=== PATIENT | female | born 1995 | race African-American/Black ===

== ENCOUNTER 2016-11-20 12:53 | Emergency (ER) | payer OTHER, SELFPAY ==
[2016-11-20 13:32] LABS: #Basophils 0.1 thou/uL (0.0-0.2); #Eosinphils 0.2 thou/uL (0.0-0.7); #Lymphocytes 2.6 thou/uL (1.20-3.40); #Monocytes 0.8 thou/uL (0.11-0.59); #Neutrophils 7.2 thou/uL (1.40-6.50); %Eosinophils 1.9 % (0.0-10.0); %Monocytes 6.9 % (0.0-10.0); Mean Platelet Volume 8.1 fL (7.4-10.4); Red Blood Cell (RBC) Count 4.26 mill/uL (4.20-5.40); White Blood Cell (WBC) Count 10.9 thou/uL (4.8-10.8)
[2016-11-20 13:40] LABS: Bilirubin Negative (Negative); Blood, Urine Negative (Negative); Glucose, Urine (Dipstick) Negative (Negative); Ketone, Urine Negative (Negative); Nitrite Negative (Negative); Protein, Urine (Dipstick) Negative (Neg-Trace); Urobilinogen 0.2 mg/dL (0.2-1.0)
[2016-11-20 13:45] LABS: ALT (SGPT) 17 U/L (0-55); AST (SGOT) 19 U/L (5-34); Alkaline Phosphatase 84 U/L (40-150); Anion Gap 13 mmol/L (10-20); BUN (Urea Nitrogen) 5 mg/dL (7.0-18.7); Bilirubin, Total 0.2 mg/dL (0.2-1.2); Calc. Creatinine Clearance 0 mL/min (70-130); Calcium 9.2 mg/dL (7.8-10.44); Carbon Dioxide 23 mmol/L (22-29); Chloride 107 mmol/L (98-107); Estimated GFR-MDRD Greater than 90; Globulin 3.5 g/dL (2.4-3.5); Protein, Total 7.2 g/dL (6.0-8.3)
--- NOTE | 2016-11-20 14:22 | PICIS ---
[facility] EMERGENCY RECORD TRIAGE (13:00 KMOR) TRIAGE NOTES: Possible allergic reaction started last night, multiple bumps on bilateral arms, back and legs, felt like face was swelling last night. (13:00 KMOR) PATIENT: NAME: Yazmin Waller, AGE: 21, GENDER: female, : Sat 1995, TIME OF GREET: SunNov 20, 2016 12:54, PREFERRED LANGUAGE: Rw[place], ETHNICITY: Not or , ECODE BILLING MAP: [facility], SSN: [id number], KG WEIGHT: 68.04, , , PERSON ID: [id number], PCP: [facility]. (13:00 KMOR) Zip Code: [address], PHONE: , PAYMENT: [place] [employer]. (13:08) COMPLAINT: Rash. (13:00 KMOR) ADMISSION: URGENCY: 4 Non Urgent, ADMISSION SOURCE: Home, TRANSPORT: CAR, BED: ER -03. (13:00 KMOR) ASSESSMENT: Assessment: A&OX4. RR EVEN AND UNLABORED., Symptoms began yesterday. (13:03 KMOR) PAIN: No complaint of pain. (13:03 KMOR) IMMUNIZATIONS: Flu vaccine up to date, Tetanus not up to date, Pneumococcal vaccine not up to date. (13:03 KMOR) SIRS SCORING: Heart Rate 55-109 (0), Temp range 96.8-101.1 (0), respiratory rate 12-24 (0), Mental Status altered: no (0), Infection or Suspected Infection: No. (13:03 KMOR) TRIAGE SCREENING: Patient denies suicidal ideation, Patient denies presence of domestic violence. (13:03 KMOR) LMP: Last menstrual period: 06/18/2016, Estimated conception 07/02/2016, Estimated due date 03/25/2017, Estimated age 22 weeks, 1 days, , P: 0, AB: 1. (13:03 KMOR) PROVIDERS: TRIAGE NURSE: Yolanda Levine RN. (13:00 KMOR) VITAL SIGNS: BP 130/81, Pulse 82, Resp 18, Temp 98.1, (Oral), Pain 0, O2 Sat 98, on Room Air, Time 11/20/2016 13:01. (13:01 KMOR) PREVIOUS VISIT ALLERGIES: No Known Drug Allergies. (13:00 KMOR) No Known Drug Allergies. (13:03 KMOR) KNOWN ALLERGIES No Known Drug Allergies CURRENT MEDICATIONS (13:01 KMOR) None VITAL SIGNS VITAL SIGNS: BP: 130/81, Pulse: 82, Resp: 18, Temp: 98.1 (Oral), Pain: 0, O2 sat: 98 on Room Air, Time: 11/20/2016 13:01. (13:01 KMOR) BP: 104/63, Pulse: 84, Resp: 18, Temp: 98.1 (Oral), Pain: 0, O2 sat: 99 on Room Air, Time: 11/20/2016 14:00. (14:00 KMOR) NURSING ASSESSMENT: SKIN (13:10 KMOR) CONSTITUTIONAL: Patient arrives ambulatory, Gait steady, History obtained from patient, Patient appears comfortable, Patient cooperative, Patient alert, Oriented to person, place and time, Skin &a-1R&a+25V*p+0X*[id number]*c202B*c15G*c2P*p-0X&a-25V&a+1R Name: Yazmin Waller : 1995 F21 MedRec: [id number] AcctNum: [id number] Prepared: SunNov 21, 2016 09:28 by Interface Page 1 of 7 pMD [facility] EMERGENCY RECORD warm, Skin dry, Skin normal in color, Mucous membranes pink, Mucous membranes moist, Patient is well-groomed, Patient complains of Bug bites, Patient reports multiple areas of redness and itching started last night, uncertain if she was bit by anything thing. Reports facial swelling last night as well. PAIN: Patient rates pain as 0 out of 10. SKIN: Skin assessment findings include skin warm, Skin dry, Skin normal in color, Inspection findings include bite daugherty, to bilateral forearms, left shoulder, right upper leg, from unknown insect, Inspection findings include swelling, to See bite locations. NURSING PROCEDURE: DISCHARGE NOTE (14:11 KMOR) DISCHARGE: Patient discharged to home, ambulating without assistance, driving self, unaccompanied, Summary of Care printed/ provided, Transition record given to patient, Discharge instructions given to patient, Simple or moderate discharge teaching performed, by JAYESH Guerrero, Discharge instructions and follow up reviewed with patient. Pt ambulatory to discharge desk., Above person(s) verbalized understanding of discharge instructions and follow-up care. BELONGINGS: Belongings remain with patient, Valuables remain with patient. NURSING PROCEDURE: HEART TONES (13:18 JSMI) HEART TONES: heart toned obtained with doppler, heart rate 160. NURSING PROCEDURE: NURSE NOTES (13:54 KMOR) NURSES NOTES: Notes: Patient resting back in bed, RR even and unlabored. NAD. ORDER DETAILS Order Name: CBC with Differential, Status: Active, Time: 13:11 11/20/2016, User: DANA, - Ordered for: DO Lyle Matthew, - Entered by: DO Lyle Matthew - Shiva Nov 20, 2016 13:11, - Quantity: 1, Order Name: Comprehensive Metabolic Panel, Status: Active, Time: 13:11 11/20/2016, User: DANA, - Ordered for: DO Lyle Matthew, - Entered by: DO Lyle Matthew - Mon Nov 20, 2016 13:11, - Quantity: 1, Order Name: Miscellaneous Nurse Order(s), Status: Done, Time: 13:21 11/20/2016, User: HAYLEE, - Ordered for: DO Llye Matthew, - Entered by: DO Lyle Matthew - Shiva Nov 20, 2016 13:11, - Quantity: 1, Order Name: Urinalysis w/ Rflx Microscopic, Status: Active, Time: &a-1R&a+25V*p+0X*i1108S*c202B*c15G*c2P*p-0X&a-25V&a+1R Name: Yazmin Waller : 1995 F21 MedRec: [id number] AcctNum: [id number] Prepared: SunNov 21, 2016 09:28 by Interface Page 2 of 7 pMD [facility] EMERGENCY RECORD 13:11 11/20/2016, User: DANA, - Ordered for: DO Lyle Matthew, - Entered by: DO Lyle Matthew - Shiva Nov 20, 2016 13:11, - Quantity: 1. HPI RASH (SunNov 21, 2016 06:51 MBRI) CHIEF COMPLAINT: Patient presents for evaluation of pruritis, Patient presents for evaluation of rash. HISTORIAN: History provided by patient. LOCATION: Symptoms are generalized, Pain moved from. QUALITY: Rash described as blanching, Rash described as itchy, Rash described as macular, Pain is dull in nature. SEVERITY: Maximum severity of symptoms mild, Currently symptoms are mild. TIME COURSE: Gradual onset of symptoms, 1, days priror to arrival, There has been no change in the patient's symptoms over time, are constant. ASSOCIATED WITH: No associated chills, No associated extremity swelling, No associated fever, No associated oral lesions, No associated pain, No associated shortness of breath, No associated scaling, No associated upper respiratory infection, Denies any other complaints. EXACERBATED BY: Patient's condition exacerbated by nothing. RELIEVED BY: Patient's condition relieved by nothing because patient has not tried anything for relief. ROS CONSTITUTIONAL: Negative constitutional review of systems, Historian denies chills, denies fever. (13:33 MBRI) EYES: Negative eye review of systems. (13:33 MBRI) ENT: Historian denies rhinorrhea, denies sore throat. (13:33 MBRI) CARDIOVASCULAR: Historian denies chest pain, denies dyspnea on exertion. (13:33 MBRI) RESPIRATORY: Historian denies cough, denies shortness of breath. (13:33 MBRI) GI: Negative gastrointestinal review of systems, Historian denies abdominal pain, denies diarrhea, denies nausea, denies vomiting. (13:33 MBRI) GENITOURINARY FEMALE: Historian denies dysuria, denies frequency, denies hematuria, reports , denies urgency, denies urine output changes, denies urinary retention, denies vaginal bleeding, denies vaginal discharge. (13:33 MBRI) MUSCULOSKELETAL: Historian denies injury, Denies any musculoskeletal pain. (13:33 MBRI) SKIN: Negative skin review of systems, Historian denies skin changes. (13:33 MBRI) NEUROLOGIC: Negative neurologic review of systems, Historian denies focal weakness, denies sensory changes. (13:33 MBRI) ALLERGIC/IMMUNOLOGIC: Normal allergy/immunologic system review. &a-1R&a+25V*p+0X*f9201U*c202B*c15G*c2P*p-0X&a-25V&a+1R Name: Yazmin Waller : 1995 F21 MedRec: [id number] AcctNum: [id number] Prepared: SunNov 21, 2016 09:28 by Interface Page 3 of 7 pMD [facility] EMERGENCY RECORD (13:34 MBRI) PAST MEDICAL HISTORY (13:03 KMOR) MEDICAL HISTORY: Flu vaccine up to date, Tetanus not up to date, Pneumococcal vaccine not up to date, Ovarian Cyst. anemia. FEMALE SURGICAL HISTORY: Patient has no surgical history. PSYCHIATRIC HISTORY: No previous psychiatric history. SOCIAL HISTORY: Patient denies alcohol use, Patient denies drug use, Patient is a former tobacco user. PHYSICAL EXAM (13:33 MBRI) CONSTITUTIONAL: Vital Signs Reviewed, Nursing notes reviewed. HEAD: Head exam included findings of head atraumatic, normocephalic. EYES: Eye exam included findings of eyelids normal to inspection, Pupils equally round and reactive to light, Extraocular muscles intact. ENT: Ear exam normal, external ear normal, tympanic membranes normal, Pharynx exam normal. NECK: Neck exam normal, no cervical adenopathy, no tenderness. RESPIRATORY CHEST: Respiratory exam included findings of no respiratory distress, Breath sounds clear, No wheezing, No rales, No rhonchi. CARDIOVASCULAR: Cardiovascular exam included findings of heart rate regular rate and rhythm, Heart sounds normal, Carotids normal. ABDOMEN FEMALE: Abdominal exam included findings of abdomen nontender, Bowel sounds normal, no peritoneal signs, no rigidity, no guarding, no rebound, Gravid uterus just above the level of the umbilicus, approx. 2-3cm. No ttp noted. BACK: Back exam included findings of normal inspection, no tenderness. UPPER EXTREMITY: Upper extremity exam included findings of inspection normal, Radial pulse normal, no cyanosis, no clubbing, no edema. LOWER EXTREMITY: Lower extremity exam included findings of inspection normal, femoral pulses normal, no cyanosis, no clubbing, no edema, no tenderness noted. NEURO: Neuro exam findings include patient oriented to person, place and time, Speech normal, no focal motor deficits. SKIN: Skin exam included findings of skin warm, dry, and normal in color, Pt with several scattered palpable nodular lesions of the ext forearms, R thigh along with some mild swelling of the ears externally. No other facial involvement. LAB INTERPRETATION (SunNov 21, 2016 06:52 MBRI) INTERPRETATION: I reviewed the lab results. EVENTS &a-1R&a+25V*p+0X*k4948U*c202B*c15G*c2P*p-0X&a-25V&a+1R Name: Yazmin Waller : 1995 F21 MedRec: [id number] AcctNum: [id number] Prepared: SunNov 21, 2016 09:28 by Interface Page 4 of 7 pMD [facility] EMERGENCY RECORD TRANSFER: Triage to Emergency Emergency Room -03. (SunNov 20, 2016 13:00 KMOR) Removed from Emergency Emergency Room -03. (14:12 KMOR) O2SAT INTERPRETATION (13:32 MBRI) O2SAT: Oxygen saturation interpretation: Normal. DOCTOR NOTES (SunNov 21, 2016 06:53 MBRI) TEXT: Pt evaluated at this time and appears stable. No findings to suggest sig illness or issue requiring hospitalization or further intervention at this time. Plan of care discussed with pt and questions answered. Pt was informed of reasons for follow-up and return and they stated understanding. Pt is stable for d/c home at this time. PROBLEM LIST No recorded problems DIAGNOSIS (14:03 MBRI) FINAL: PRIMARY: URTICARIA UNSPECIFIED, ADDITIONAL: . DISPOSITION PATIENT: Disposition Type: Discharge, Disposition: *Discharge Home, Condition: Good. (14:03 MBRI) Patient left the department. (14:12 KMOR) INSTRUCTION (14:04 MBRI) DISCHARGE: URTICARIA. FOLLOWUP: [facility], [facility], [address], [place] [address], , Follow up with Primary Care Physician in 7 days. SPECIAL: Please return for any further issues or concerns, we would be happy to see you. We hope you feel better soon. Follow-up with your PCP Tylenol for Pain. PRESCRIPTION (14:04 MBRI) Benadryl oral: CAPSULE (HARD, SOFT, ETC.) : 25 mg : ORAL : Quantity: 1-2 Unit: tab(s) Route: ORAL Schedule: every 6 hours PRN Dispense: 30 May substitute. Refills: No Refills . NOTES: No refills. IMAGING (14:13 KMOR) *DISCHARGE INSTRUCTIONS RECEIPT: Image captured from scanner. *SUPPLY CHARGE SHEET: Image captured from scanner. ADMIN &a-1R&a+25V*p+0X*d7202K*c202B*c15G*c2P*p-0X&a-25V&a+1R Name: Yazmin Waller : 1995 F21 MedRec: [id number] AcctNum: [id number] Prepared: SunNov 21, 2016 09:28 by Interface Page 5 of 7 pMD [facility] EMERGENCY RECORD DIGITAL SIGNATURE: JAYESH Levine, Yolanda. (14:18 KMOR) DO Lyle Matthew. (SunNov 21, 2016 09:21 MBRI) RESULTS (13:52 MBRI) LABORATORY: Comprehensive Metabolic Panel Collection DT: SunNov 20, 2016 13:28, Sodium 139 mmol/L, Range (136-145), Potassium 3.9 mmol/L, Range (3.5-5.1), Chloride 107 mmol/L, Range (98-107), Carbon Dioxide 23 mmol/L, Range (22-29), Anion Gap 13 mmol/L, Range (10-20), *BUN (Urea Nitrogen) 5 - L mg/dL, Range (7.0-18.7), Creatinine 0.64 mg/dL, Range (0.6-1.1), Estimated GFR-MDRD Greater than 90 , Reference Range for Estimated GFR: Greater than 90, mL/min/1.73 m2 NOTE: The MDRD equation has not been validated for use, with the elderly (over 70 years of age), women, patients with, serious comorbid condition or persons with extremes of body size, muscle, mass, or nutritional status. , Glucose 78 mg/dL, Range (70-105), Calcium 9.2 mg/dL, Range (7.8-10.44), Bilirubin, Total 0.2 mg/dL, Range (0.2-1.2), Protein, Total 7.2 g/dL, Range (6.0-8.3), NOTE: Plasma values are generally 0.3 to 0.5 g/dL higher than serum values, due to the presence of fibrinogen. , Albumin 3.7 g/dL, Range (3.5-5.0), Globulin 3.5 g/dL, Range (2.4-3.5), *Alb/Glob Ratio 1.1 - L g/dL, Range (1.2-2.2), Alkaline Phosphatase 84 U/L, Range (40-150), AST (SGOT) 19 U/L, Range (5-34), ALT (SGPT) 17 U/L, Range (0-55). Urinalysis w/ Rflx Microscopic Collection DT: SunNov 20, 2016 13:39, Color Yellow , Range (Yellow), Clarity Clear , Range (Clear), Specific [place], Urine 1.010 , Range (1.005-1.030), pH, Urine 7.0 , Range (5.0-9.0), Leukocyte Negative , Range (Negative), Nitrite Negative , Range (Negative), Protein, Urine (Dipstick) Negative mg/dL, Range (Neg-Trace), Glucose, Urine (Dipstick) Negative mg/dL, Range (Negative), Ketone, Urine Negative mg/dL, Range (Negative), Urobilinogen 0.2 mg/dL, Range (0.2-1.0), Bilirubin Negative , Range (Negative), Blood, Urine Negative , Range (Negative). CBC with Differential Collection DT: SunNov 20, 2016 13:28, *White Blood Cell (WBC) Count 10.9 - H thou/uL, Range (4.8-10.8), &a-1R&a+25V*p+0X*w6169K*c202B*c15G*c2P*p-0X&a-25V&a+1R Name: Yazmin Waller : 1995 F21 MedRec: [id number] AcctNum: [id number] Prepared: SunNov 21, 2016 09:28 by Interface Page 6 of 7 pMD [facility] EMERGENCY RECORD Red Blood Cell (RBC) Count 4.26 mill/uL, Range (4.20-5.40), Hemoglobin 13.6 g/dL, Range (12.0-16.0), Hematocrit 41.0 %, Range (36.0-47.0), Mean Corpuscular Volume 96.3 fl, Range (81.0-99.0), *Mean Corpuscular Hemoglobin 32.0 - H pg, Range (27.0-31.0), Mean Corpuscular HGB CONC 33.2 g/dL, Range (32.0-36.0), RBC Distribution Width 14.1 %, Range (11.5-14.5), Platelet Count 240 thou/uL, Range (130-400), Mean Platelet Volume 8.1 fL, Range (7.4-10.4), %Neutrophils 66.5 %, Range (42.0-75.0), %Lymphocytes 23.8 %, Range (21.0-51.0), %Monocytes 6.9 %, Range (0.0-10.0), %Eosinophils 1.9 %, Range (0.0-10.0), %Basophils 1.0 %, Range (0.0-1.0), *#Neutrophils 7.2 - H thou/uL, Range (1.40-6.50), #Lymphocytes 2.6 thou/uL, Range (1.20-3.40), *#Monocytes 0.8 - H thou/uL, Range (0.11-0.59), #Eosinphils 0.2 thou/uL, Range (0.0-0.7), #Basophils 0.1 thou/uL, Range (0.0-0.2). Ortiz: UCHE=JAYESH Addison, Ann KMOR=JAYESH Levine, Yolanda MBRI=DO Lyle Matthew &a-1R&a+25V*p+0X*a4410A*c202B*c15G*c2P*p-0X&a-25V&a+1R Name: Yazmin Waller : 1995 F21 MedRec: [id number] AcctNum: [id number] Prepared: SunNov 21, 2016 09:28 by Interface Page 7 of 7 pMD [facility] MEDICATION RECONCILIATION You were seen in the Emergency Department on: SunNov 20, 2016 KNOWN ALLERGIES No Known Drug Allergies HOME MEDICATIONS None Notes from the emergency department Reviewed with patient PRESCRIPTIONS (1) &a-1R&a+25V*p+0X*r2928Y*c202B*c15G*c2P*p-0X&a-25V&a+1R Name: Yazmin Waller : 1995 F21 MedRec: [id number] AcctNum: [id number] Prepared: Edouard Nov 21, 2016 09:28 by Interface pMD [facility]
== END 2016-11-20 14:06 | disposition home or self-care (01) ==
LOC: BURERS 12:53
DX: O99.719 Diseases of the skin and subcutaneous tissue complicating pregnancy, unspecified trimester (principal); L50.9 Urticaria, unspecified; O99.019 Anemia complicating pregnancy, unspecified trimester; D64.9 Anemia, unspecified; Z87.891 Personal history of nicotine dependence
CPT/HCPCS: 36415; 80053; 81003; 85025; 99283

== ENCOUNTER 2017-01-15 14:21 | Emergency (ER) | payer OTHER ==
[2017-01-15 14:51] LABS: #Basophils 0.1 thou/uL (0.0-0.2); #Eosinphils 0.1 thou/uL (0.0-0.7); #Monocytes 0.7 thou/uL (0.11-0.59); #Neutrophils 7.6 thou/uL (1.40-6.50); %Basophils 0.7 % (0.0-1.0); %Eosinophils 1.2 % (0.0-10.0); %Lymphocytes 25.9 % (21.0-51.0); %Monocytes 6.3 % (0.0-10.0); %Neutrophils 65.9 % (42.0-75.0); Mean Corpuscular HGB CONC 33.6 g/dL (32.0-36.0); Mean Corpuscular Hemoglobin 31.9 pg (27.0-31.0); Mean Platelet Volume 10.7 fL (7.4-10.4); Platelet Count 174 thou/uL (130-400); RBC Distribution Width 12.9 % (11.5-14.5); Red Blood Cell (RBC) Count 4.39 mill/uL (4.20-5.40); White Blood Cell (WBC) Count 11.5 thou/uL (4.8-10.8)
[2017-01-15 15:00] LABS: Bilirubin Negative (Negative); Blood, Urine Negative (Negative); Clarity Clear (Clear); Glucose, Urine (Dipstick) Negative (Negative); Leukocyte Negative (Negative); Nitrite Negative (Negative); Protein, Urine (Dipstick) Negative (Neg-Trace); Urobilinogen 0.2 mg/dL (0.2-1.0)
[2017-01-15 15:31] LABS: ALT (SGPT) 13 U/L (0-55); AST (SGOT) 13 U/L (5-34); Albumin 3.3 g/dL (3.5-5.0); Alkaline Phosphatase 177 U/L (40-150); Anion Gap 13 mmol/L (10-20); BUN (Urea Nitrogen) 7 mg/dL (7.0-18.7); Bilirubin, Total 0.3 mg/dL (0.2-1.2); Calc. Creatinine Clearance 0 mL/min (70-130); Calcium 8.6 mg/dL (7.8-10.44); Carbon Dioxide 18 mmol/L (22-29); Chloride 109 mmol/L (98-107); Estimated GFR-MDRD Greater than 90; Globulin 2.8 g/dL (2.4-3.5); Glucose 72 mg/dL (70-105); Potassium 4.2 mmol/L (3.5-5.1); Protein, Total 6.1 g/dL (6.0-8.3); Sodium 136 mmol/L (136-145)
== END 2017-01-15 16:32 | disposition short-term general hospital (02) ==
LOC: BURERS 14:21
DX: O62.9 Abnormality of forces of labor, unspecified (principal); Z3A.34 34 weeks gestation of pregnancy
CPT/HCPCS: 80053; 81003; 85025; 87086; A4353; J2270

== ENCOUNTER 2018-10-25 20:02 | Emergency (ER) | payer OTHER ==
[2018-10-25 20:35] LABS: #Basophils 0.1 thou/uL (0.0-0.2); #Eosinphils 0.1 thou/uL (0.0-0.7); #Lymphocytes 4.4 thou/uL (1.20-3.40); #Monocytes 0.6 thou/uL (0.11-0.59); #Neutrophils 6.3 thou/uL (1.40-6.50); %Basophils 1.1 % (0.0-1.0); %Eosinophils 0.9 % (0.0-10.0); %Lymphocytes 38.3 % (21.0-51.0); %Monocytes 5.1 % (0.0-10.0); %Neutrophils 54.6 % (42.0-75.0); Hemoglobin 12.9 g/dL (12.0-16.0); Mean Corpuscular HGB CONC 33.7 g/dL (32.0-36.0); Mean Corpuscular Hemoglobin 28.2 pg (27.0-31.0); Mean Corpuscular Volume 83.7 fL (78.0-98.0); Mean Platelet Volume 9.2 fL (7.4-10.4); Platelet Count 231 thou/uL (130-400); RBC Distribution Width 18.3 % (11.5-14.5); Red Blood Cell (RBC) Count 4.58 mill/uL (4.20-5.40); White Blood Cell (WBC) Count 11.5 thou/uL (4.8-10.8)
[2018-10-25 20:49] LABS: ALT (SGPT) 8 U/L (8-55); AST (SGOT) 12 U/L (5-34); Albumin 3.9 g/dL (3.5-5.0); Alkaline Phosphatase 64 U/L (40-150); Anion Gap 15 mmol/L (10-20); BUN (Urea Nitrogen) 5 mg/dL (7.0-18.7); Bilirubin, Total 0.3 mg/dL (0.2-1.2); Calc. Creatinine Clearance 0 mL/min (70-130); Calcium 9.2 mg/dL (7.8-10.44); Carbon Dioxide 22 mmol/L (22-29); Chloride 104 mmol/L (98-107); Estimated GFR-MDRD Greater than 90; Globulin 3.2 g/dL (2.4-3.5); Glucose 90 mg/dL (70-105); Potassium 3.5 mmol/L (3.5-5.1); Protein, Total 7.1 g/dL (6.0-8.3); Sodium 137 mmol/L (136-145)
[2018-10-25 20:56] LABS: Clarity Clear (Clear); Leukocyte Negative (Negative); Nitrite Negative (Negative)
[2018-10-25 20:57] LABS: Bilirubin Negative (Negative); Blood, Urine Negative (Negative); Glucose, Urine (Dipstick) Negative (Negative); Protein, Urine (Dipstick) Negative (Neg-Trace); Urobilinogen 0.2 mg/dL (0.2-1.0)
--- NOTE | 2018-10-26 11:50 | RAD ---
PORTABLE CHEST: DATE: 10/25/2018. FINDINGS: The heart is normal in size and the lungs are clear. This portable study of 2036 shows no active tho racic disease. The mediastinum appears normal. There is no congestive change. IMPRESSION: No acute findings. POS: HOME
== END 2018-10-25 22:00 | disposition home or self-care (01) ==
LOC: BURERS 20:02
DX: O99.89 Other specified diseases and conditions complicating pregnancy, childbirth and the puerperium (principal); R06.02 Shortness of breath; O99.012 Anemia complicating pregnancy, second trimester; Z87.891 Personal history of nicotine dependence; Z3A.15 15 weeks gestation of pregnancy
CPT/HCPCS: 71045; 80053; 81003; 83880; 84443; 84484; 85025; 85379; 87804; 93005; 96360

== ENCOUNTER 2018-11-02 02:12 | Emergency (ER) | payer OTHER ==
[2018-11-02 03:21] LABS: Bilirubin Negative (Negative); Blood, Urine Negative (Negative); Clarity Clear (Clear); Glucose, Urine (Dipstick) Negative (Negative); Leukocyte Negative (Negative); Nitrite Negative (Negative); Protein, Urine (Dipstick) Negative (Neg-Trace); Urobilinogen 0.2 mg/dL (0.2-1.0)
[2018-11-02 03:21] LABS: BHCG - Serum POSITIVE (NEGATIVE); Pregs Control Background? CLEAR/WHITE (CLR/WHITE); Pregs Control Bar Appear? YES (CONTROL BAR)
[2018-11-02 03:23] LABS: #Basophils 0.1 thou/uL (0.0-0.2); #Eosinphils 0.2 thou/uL (0.0-0.7); #Lymphocytes 4.3 thou/uL (1.20-3.40); #Monocytes 0.7 thou/uL (0.11-0.59); #Neutrophils 6.1 thou/uL (1.40-6.50); %Basophils 0.6 % (0.0-1.0); %Eosinophils 1.5 % (0.0-10.0); %Lymphocytes 37.9 % (21.0-51.0); %Monocytes 6.2 % (0.0-10.0); %Neutrophils 53.8 % (42.0-75.0); Hemoglobin 12.8 g/dL (12.0-16.0); Mean Corpuscular HGB CONC 34.7 g/dL (32.0-36.0); Mean Corpuscular Hemoglobin 28.4 pg (27.0-31.0); Mean Platelet Volume 9.2 fL (7.4-10.4); Platelet Count 239 thou/uL (130-400); RBC Distribution Width 17.8 % (11.5-14.5); Red Blood Cell (RBC) Count 4.49 mill/uL (4.20-5.40); White Blood Cell (WBC) Count 11.4 thou/uL (4.8-10.8)
[2018-11-02 03:33] LABS: ALT (SGPT) 8 U/L (8-55); AST (SGOT) 12 U/L (5-34); Alkaline Phosphatase 65 U/L (40-150); Anion Gap 14 mmol/L (10-20); BUN (Urea Nitrogen) 4 mg/dL (7.0-18.7); Bilirubin, Total 0.2 mg/dL (0.2-1.2); Calc. Creatinine Clearance 0 mL/min (70-130); Calcium 9.7 mg/dL (7.8-10.44); Carbon Dioxide 24 mmol/L (22-29); Chloride 103 mmol/L (98-107); Estimated GFR-MDRD Greater than 90; Globulin 3.3 g/dL (2.4-3.5); Glucose 91 mg/dL (70-105); Potassium 3.5 mmol/L (3.5-5.1); Protein, Total 7.3 g/dL (6.0-8.3); Sodium 137 mmol/L (136-145)
== END 2018-11-02 03:50 | disposition home or self-care (01) ==
LOC: BURERS 02:12
DX: O99.342 Other mental disorders complicating pregnancy, second trimester (principal); F41.1 Generalized anxiety disorder; O99.89 Other specified diseases and conditions complicating pregnancy, childbirth and the puerperium; R07.9 Chest pain, unspecified; O99.012 Anemia complicating pregnancy, second trimester; Z79.899 Other long term (current) drug therapy; Z3A.16 16 weeks gestation of pregnancy
CPT/HCPCS: 80053; 81003; 84703; 85025; 85379; 93005

== ENCOUNTER 2018-11-07 20:09 | Emergency (ER) | payer OTHER ==
[2018-11-07 21:36] LABS: Clarity Slightly Cloudy (Clear); Glucose, Urine (Dipstick) Negative (Negative); Leukocyte Trace (Negative); Nitrite Negative (Negative); Protein, Urine (Dipstick) Negative (Neg-Trace); Urobilinogen 0.2 mg/dL (0.2-1.0)
[2018-11-07 21:37] LABS: Bacteria/HPF 2+ HPF (None Seen); Bilirubin Negative (Negative); Blood, Urine Negative (Negative); RBC/HPF None Seen HPF (0-3); Squamous Epithelial 0-3 HPF (0-3); WBC/HPF 0-3 HPF (0-3)
== END 2018-11-07 21:45 | disposition home or self-care (01) ==
LOC: BURERS 20:09
DX: F41.9 Anxiety disorder, unspecified (principal); F31.9 Bipolar disorder, unspecified; Z87.891 Personal history of nicotine dependence
CPT/HCPCS: 81003; 81015; 99283

== ENCOUNTER 2020-04-17 13:49 | Emergency (ER) | payer OTHER ==
[2020-04-17] MEDS ORDERED: Ibuprofen 200 MG TAB ONE (14:56)
--- NOTE | 2020-04-18 06:53 | RAD ---
LEFT ANKLE 3 VIEWS: DATE: 04/17/2020. FINDINGS: Some mild soft tissue swelling is present. No fracture was seen. The ankle joint appears normal. IMPRESSION: Soft tissue swelling. POS: HOME
== END 2020-04-17 15:20 | disposition home or self-care (01) ==
LOC: BURERS 13:49
DX: S93.432A Sprain of tibiofibular ligament of left ankle, initial encounter (principal); F41.9 Anxiety disorder, unspecified; F31.9 Bipolar disorder, unspecified; F17.210 Nicotine dependence, cigarettes, uncomplicated; X50.1XXA Overexertion from prolonged static or awkward postures, initial encounter

== ENCOUNTER 2021-04-15 20:59 | Emergency (ER) | payer OTHER ==
[2021-04-15] MEDS ORDERED: Ibuprofen 800 MG TAB ONE (21:28)
[2021-04-16 21:41] LABS: SARS-CoV-2 PCR by NAA Not Detected (NotDetected)
== END 2021-04-15 21:55 | disposition home or self-care (01) ==
LOC: BURERS 20:59
DX: J02.9 Acute pharyngitis, unspecified (principal); R51.9 Headache, unspecified; R06.02 Shortness of breath; R05 Cough; R42 Dizziness and giddiness; Z20.822 Contact with and (suspected) exposure to COVID-19; Z87.891 Personal history of nicotine dependence
CPT/HCPCS: 99283; U0003; U0005

== ENCOUNTER 2021-07-21 12:17 | Emergency (ER) | payer OTHER ==
[2021-07-22 00:39] LABS: SARS-CoV-2 PCR by NAA Not Detected (NotDetected)
== END 2021-07-21 12:38 | disposition home or self-care (01) ==
LOC: BURERS 12:17
DX: Z20.822 Contact with and (suspected) exposure to COVID-19 (principal); F17.210 Nicotine dependence, cigarettes, uncomplicated
CPT/HCPCS: 99283; U0003; U0005

== ENCOUNTER 2022-07-13 16:16 | Emergency (ER) | payer MEDICAID, OTHER ==
[2022-07-13] MEDS ORDERED: Ondansetron PF 4 MG/2 ML Vial ONE (17:29)
[2022-07-13 17:47] LABS: Hemoglobin 11.5 g/dL (12.0-16.0); Mean Corpuscular HGB CONC 31.2 g/dL (32.0-36.0); Mean Corpuscular Hemoglobin 21.5 pg (27.0-31.0); Mean Corpuscular Volume 68.9 fL (78.0-98.0); Mean Platelet Volume 6.5 fL (7.4-10.4); Platelet Count 413 thou/uL (130-400); RBC Distribution Width 17.5 % (11.5-14.5); Red Blood Cell (RBC) Count 5.33 mill/uL (4.20-5.40); White Blood Cell (WBC) Count 6.9 thou/uL (4.8-10.8)
[2022-07-13 17:48] LABS: #Basophils 0.1 thou/uL (0.0-0.2); #Eosinphils 0.2 thou/uL (0.0-0.7); #Lymphocytes 2.4 thou/uL (1.20-3.40); #Monocytes 0.4 thou/uL (0.11-0.59); #Neutrophils 3.8 thou/uL (1.40-6.50); %Basophils 1.4 % (0.0-1.0); %Lymphocytes 34.3 % (21.0-51.0); %Monocytes 5.3 % (0.0-10.0); %Neutrophils 55.9 % (42.0-75.0)
[2022-07-13 17:57] LABS: BHCG - Serum Negative (NEGATIVE); Pregs Control Background? CLEAR/WHITE (CLR/WHITE); Pregs Control Bar Appear? YES (CONTROL BAR)
[2022-07-13 17:58] LABS: ALT (SGPT) 11 U/L (8-55); AST (SGOT) 12 U/L (5-34); Albumin 3.9 g/dL (3.5-5.0); Alkaline Phosphatase 59 U/L (40-110); Anion Gap 11 mmol/L (10-20); BUN (Urea Nitrogen) 13 mg/dL (7.0-18.7); Bilirubin, Total Less than 0.2 mg/dL (0.2-1.2); Calc. Creatinine Clearance 0 mL/min (70-130); Calcium 8.8 mg/dL (7.8-10.44); Carbon Dioxide 25 mmol/L (22-29); Chloride 107 mmol/L (98-107); Estimated GFR 84; Globulin 2.9 g/dL (2.4-3.5); Glucose 84 mg/dL (70-105); Potassium 4.5 mmol/L (3.5-5.1); Protein, Total 6.8 g/dL (6.0-8.3); Sodium 138 mmol/L (136-145)
[2022-07-13 18:04] LABS: Hypochromia SLIGHT = 6-15 cells (100X) (0-5/hpf); MDiff Complete? YES; Microcytosis SLIGHT = 6-15 cells (100X) (0-5/hpf); Platelet Morphology Comment Appears Adequate
== END 2022-07-13 19:39 | disposition home or self-care (01) ==
LOC: BURERS 16:16
DX: E86.0 Dehydration (principal); R11.2 Nausea with vomiting, unspecified; Z87.891 Personal history of nicotine dependence
CPT/HCPCS: 80053; 84703; 85025; 96361; 96374; J2405

== ENCOUNTER 2023-11-25 01:04 | Emergency (ER) | payer SELFPAY ==
[2023-11-25 02:38] LABS: SARS-CoV-2 NAA Rapid Test DETECTED (NotDetected)
== END 2023-11-25 03:15 | disposition home or self-care (01) ==
LOC: BURERS 01:04
DX: U07.1 COVID-19 (principal); F17.290 Nicotine dependence, other tobacco product, uncomplicated
CPT/HCPCS: 99283

== ENCOUNTER 2024-04-28 22:02 | Emergency (ER) | payer SELFPAY ==
[2024-04-28] MEDS ORDERED: Azithromycin 250 MG TAB ONE (22:43)
== END 2024-04-28 23:05 | disposition home or self-care (01) ==
LOC: BURERS 22:02
DX: J01.90 Acute sinusitis, unspecified (principal); B96.89 Other specified bacterial agents as the cause of diseases classified elsewhere; F17.290 Nicotine dependence, other tobacco product, uncomplicated
CPT/HCPCS: 99283

== ENCOUNTER 2024-07-29 17:58 | Emergency (ER) | payer SELFPAY | END 2024-07-29 18:37 | disposition home or self-care (01) | LOC: BURERS 17:58 | DX: J02.0 Streptococcal pharyngitis (principal); F90.9 Attention-deficit hyperactivity disorder, unspecified type; F17.290 Nicotine dependence, other tobacco product, uncomplicated; Z79.899 Other long term (current) drug therapy | CPT/HCPCS: 96372; 99282 ==

== ENCOUNTER 2024-09-22 01:29 | Emergency (ER) | payer SELFPAY ==
[2024-09-22] MEDS ORDERED: Magnesium Citrate 300 ML BOT ONE (01:42)
[2024-09-22] MEDS ORDERED: Dicyclomine 20 MG TAB ONE (01:42)
== END 2024-09-22 02:08 | disposition home or self-care (01) ==
LOC: BURERS 01:29
DX: K59.00 Constipation, unspecified (principal); F17.290 Nicotine dependence, other tobacco product, uncomplicated
CPT/HCPCS: 74019; 99284